=== PATIENT | female | born 1980 | race African-American/Black ===

== ENCOUNTER 2016-11-15 15:36 | Emergency (ER) | payer MEDICAID, OTHER ==
[~2016-11-15] VITALS: Ht 167.6 cm; Wt 65.3 kg
[2016-11-15 16:29] VITALS: BP 146/101
== END 2016-11-15 19:06 | disposition left against medical advice (07) ==
LOC: ER 15:37
DX: R51 Headache (principal); Z53.21 Procedure and treatment not carried out due to patient leaving prior to being seen by health care provider; W18.39XA Other fall on same level, initial encounter; Y93.89 Activity, other specified; Y92.89 Other specified places as the place of occurrence of the external cause; Y99.8 Other external cause status